=== PATIENT | female | born 1990 | race Caucasian/White ===

== ENCOUNTER 2016-04-19 16:17 | Emergency (ER) | payer SELFPAY ==
--- NOTE | 2016-04-19 16:32 | ER Document Report ---
ED Medical Screen (RME) - General Stated Complaint: FEVER/CHILLS Mode of Arrival: Ambulatory Information source: Patient Notes: Patient complains of flulike symptoms for the past few days. Patient reports fever yesterday. Patient also complains of bilateral flank pain. Patient reports urinary frequency with dark urine. I have greeted and performed a rapid initial assessment of this patient. A comprehensive ED assessment and evaluation of the patient, analysis of test results and completion of the medical decision making process will be conducted by additional ED providers. TRAVEL OUTSIDE OF THE [place] IN LAST 30 DAYS: No - Related Data Allergies/Adverse Reactions: latex [Latex] Allergy (Verified 04/19/16 16:30) amoxicillin [Amoxicillin] Adverse Reaction (Verified 04/19/16 16:30) rash Past Medical History Psychiatric Medical History: Reports: Hx Bipolar Disorder, Hx Depression Past Surgical History: Reports: Hx Adenoidectomy, Hx Section, Hx Oral Surgery, Hx Tonsillectomy - Immunizations Immunizations up to date: Yes Hx Diphtheria, Pertussis, Tetanus Vaccination: No - unknown Physical Exam - Back Back: CVA tenderness - Bilateral
[2016-04-19 17:27] LABS: HEMATOCRIT 45.3 % (36.0-47.0); HEMOGLOBIN 15.5 g/dL (12.0-15.5); HGB HCT DIFFERENCE 1.2; MEAN CORPUSCULAR HEMOGLOBIN 30.7 pg (27.0-33.4); MEAN CORPUSCULAR HGB CONC 34.2 g/dL (32.0-36.0); MEAN CORPUSCULAR VOLUME 90 fl (80-97); RED BLOOD COUNT 5.05 10^6/uL (3.72-5.28); RED CELL DISTRIBUTION WIDTH 13.4 % (11.5-14.0); WHITE BLOOD COUNT 7.5 10^3/uL (4.0-10.5)
[2016-04-19 17:39] LABS: ALANINE AMINOTRANSFERASE 44 U/L (9-52); ALBUMIN 4.4 g/dL (3.5-5.0); ALKALINE PHOSPHATASE 81 U/L (38-126); ANION GAP 12 (5-19); ASPARTATE AMINO TRANSFERASE 32 U/L (14-36); BILIRUBIN,TOTAL 0.4 mg/dL (0.2-1.3); BLOOD UREA NITROGEN 10 mg/dL (7-20); CALCIUM 9.6 mg/dL (8.4-10.2); CARBON DIOXIDE 25 mmol/L (22-30); CHLORIDE 106 mmol/L (98-107); CREATININE RESULT 0.73 mg/dL (0.52-1.25); GLUCOSE 92 mg/dL (75-110); POTASSIUM 4.4 mmol/L (3.6-5.0); SODIUM 142.6 mmol/L (137-145)
[2016-04-19 17:40] LABS: BAND NEUTROPHILS % (MANUAL) 4 % (3-5); BASOPHILS % (MANUAL) 0 % (0-2); EOSINOPHILS % (MANUAL) 2 % (0-6); LYMPHOCYTES % (MANUAL) 21 % (13-45); TOTAL CELLS COUNTED 100
[2016-04-19 17:41] LABS: RBC MORPHOLOGY COMMENT NORMO-CYTIC/CHROMIC
[2016-04-19 18:26] LABS: APPEARANCE,URINE TURBID; BILIRUBIN,URINE NEGATIVE (NEGATIVE); GLUCOSE, URINE NEGATIVE (NEGATIVE); KETONES,URINE NEGATIVE (NEGATIVE); LEUKOCYTE ESTERASE,URINE SMALL (NEGATIVE); NITRITE,URINE POSITIVE (NEGATIVE); PROTEIN,URINE NEGATIVE (NEGATIVE); URINE SPECIFIC GRAVITY 1.025; UROBILINOGEN,URINE NEGATIVE mg/dL (<2.0)
--- NOTE | 2016-04-19 19:21 | ER Document Report ---
ED Flu Like - General Chief Complaint: Flu Symptoms Stated Complaint: FEVER/CHILLS Mode of Arrival: Ambulatory Information source: Patient TRAVEL OUTSIDE OF THE [place] IN LAST 30 DAYS: No - HPI Onset: Other - 3-4 DAYS AGO Timing/Duration: Intermittent. No: Sudden - GRADUAL ONSET Quality of pain: Achy, Dull Severity: Moderate CO exposure: No Tick/Insect bite: No: Confirmed, Suspected, Camping/Hiking Shortness of breath: Mild Associated symptoms: Chills, Nonproductive cough, Fever, Nausea, Other - BACK PAIN (UPPER LUMBAR, R=L), MUCH WORSE THAN ROUTINE CHRONIC BACK PAIN.. denies: Diarrhea Similar symptoms previously: No Recently seen / treated by doctor: No - Related Data Allergies/Adverse Reactions: latex [Latex] Allergy (Verified 04/19/16 16:30) amoxicillin [Amoxicillin] Adverse Reaction (Verified 04/19/16 16:30) rash Past Medical History - General Information source: Patient - Social History Smoking Status: Current Every Day Smoker Chew tobacco use (# tins/day): No Frequency of alcohol use: None Drug Abuse: None Lives with: Spouse/Significant other Family History: None Patient has suicidal ideation: No Patient has homicidal ideation: No - Past Medical History Cardiac Medical History: Reports: None Pulmonary Medical History: Reports: None EENT Medical History: Reports: None Neurological Medical History: Reports: None Endocrine Medical History: Reports: None Renal/ Medical History: Reports: None. Denies: Hx Peritoneal Dialysis Malignancy Medical History: Reports: None GI Medical History: Reports: None Musculoskeltal Medical History: Reports Other - CHRONIC BACK PAIN, ? CAUSE Psychiatric Medical History: Reports: Hx Bipolar Disorder, Hx Depression Past Surgical History: Reports: Hx Adenoidectomy, Hx Section, Hx Oral Surgery, Hx Tonsillectomy - Immunizations Immunizations up to date: Yes Hx Diphtheria, Pertussis, Tetanus Vaccination: No - unknown Review of Systems - Review of Systems Constitutional: See HPI EENT: denies: Eye pain, Ear pain, Throat pain, Mouth pain Cardiovascular: No symptoms reported Respiratory: No symptoms reported Gastrointestinal: See HPI Genitourinary: See HPI, Dysuria, Frequency Female Genitourinary: No symptoms reported. denies: Musculoskeletal: See HPI Skin: No symptoms reported Neurological/Psychological: No symptoms reported Physical Exam - Vital signs Vitals: Temp Pulse Resp BP Pulse Ox 99.6 F 98 20 132/71 H 98 04/19/16 16:31 04/19/16 16:31 04/19/16 16:31 04/19/16 16:31 04/19/16 16:31 Interpretation: Normal - General General appearance: Appears well, Alert In distress: None - HEENT Head: Normocephalic Eyes: Normal Conjunctiva: Normal Ears: Normal Nasal: Normal Mouth/Lips: Normal Mucous membranes: Normal Pharynx: Erythema - SLIGHT. No: Exudate, Post nasal drainage, Tonsillar hypertrophy, Uvular edema Neck: Normal. No: Lymphadenopathy - Respiratory Respiratory status: No respiratory distress Breath sounds: Normal - Cardiovascular Rhythm: Regular - Abdominal Inspection: Normal Distension: No distension Bowel sounds: Normal Tenderness: Nontender - Back Back: Normal, Tender - SUPERFICIAL LUMBAR PARASPINOUS TENDERNESS, BILAT., CVA tenderness - BILATERAL - Extremities General upper extremity: Normal inspection General lower extremity: Normal inspection - Neurological Neuro grossly intact: Yes Cognition: Normal Orientation: AAOx4 - Psychological Associated symptoms: Normal affect, Normal mood - Skin Skin Temperature: Warm Skin Moisture: Dry Skin Color: Normal Skin Turgor: Elastic Course - Vital Signs Vital signs: Temp Pulse Resp BP Pulse Ox 99.6 F 98 16 132/71 H 98 04/19/16 16:31 04/19/16 16:31 04/19/16 18:00 04/19/16 16:31 04/19/16 16:31 - Laboratory Result Diagrams: 04/19/16 16:50 04/19/16 16:50 Laboratory results interpreted by me: 04/19/16 04/19/16 16:50 16:50 Monocytes % (Manual) 15 H Urine Blood MODERATE H Urine Nitrite POSITIVE H Ur Leukocyte Esterase SMALL H Urine Ascorbic Acid 20 H Discharge - Discharge Clinical Impression: Viral illness Urinary tract infection Qualifiers: Urinary tract infection type: site unspecified Hematuria presence: without hematuria Qualified Code(s): N39.0 - Urinary tract infection, site not specified Condition: Stable Disposition: HOME, SELF-CARE Instructions: Nitrofurantoin ([facility]), Oral Narcotic Medication ([facility]), Urinary Tract Infection ([facility]), Viral Syndrome ([facility]), Antinausea Medication ([facility]) Additional Instructions: REST, DRINK PLENTY OF FLUIDS. TYLENOL OR IBUPROFEN FOR FEVER CONTROL IF NEEDED. TAKE MACROBID DIRECTED. YOU MAY TAKE ZOFRAN IF NEEDED FOR NAUSEA CONTROL. YOU MAY TAKE NORCO IF NEEDED FOR PAIN RELIEF. FOLLOW UP IF NOT IMPROVING IN 48 HOURS, OR SOONER IF WORSE ANY TIME. Prescriptions: Hydrocodone/Acetaminophen [[place] 5-325 mg Tablet] 1 tab PO Q4HP PRN #14 tablet PRN Reason: For Pain Nitrofurantoin/Nitrofuran Mac [Macrobid 100 mg Capsule] 100 mg PO BID #20 capsule Ondansetron [Zofran Odt 4 mg Tablet] 1 - 2 tab PO Q4H #10 [email or web address]
[2016-04-19 19:33] VITALS: BP 130/70
== END 2016-04-19 19:33 | disposition home or self-care (01) ==
LOC: ER 16:17
DX: N39.0 Urinary tract infection, site not specified (principal); B34.9 Viral infection, unspecified; R50.9 Fever, unspecified; R05 Cough; M54.89 Other dorsalgia; F17.200 Nicotine dependence, unspecified, uncomplicated; Z91.040 Latex allergy status; Z88.0 Allergy status to penicillin
CPT/HCPCS: 36415; 71020; 80053; 81001; 84703; 85025; 87086; 87088; 87186; 99283

== ENCOUNTER 2017-07-13 21:30 | Emergency (ER) | payer OTHER ==
[2017-07-14] MEDS ORDERED: KETOROLAC TROMETHAMINE INJ/PF 30 MG/1 ML SDV IV ONE (00:29)
[2017-07-14] MEDS ORDERED: MORPHINE SULFATE 10 MG/ML INJ IV ONE (00:29)
[2017-07-14] MEDS ORDERED: ONDANSETRON 4 MG TAB.RAPDIS PO ONE (00:30)
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
[2017-07-14 01:45] LABS: URINE AMPHETAMINES SCREEN NEGATIVE; URINE BARBITURATES SCREEN NEGATIVE; URINE BENZODIAZEPINES SCREEN NEGATIVE; URINE COCAINE SCREEN NEGATIVE; URINE MARIJUANA (THC) SCREEN NEGATIVE; URINE METHADONE SCREEN NEGATIVE; URINE PHENCYCLIDINE SCREEN NEGATIVE
[2017-07-14] MEDS ORDERED: HYDROMORPHONE HCL INJ/PF 2 MG/ML AMPULE IV ONE (03:37)
--- NOTE | 2017-07-14 04:02 | RADIOLOGY REPORT (SQ) ---
EXAM DESCRIPTION: 1. CTA of the head with and without contrast. 2. CTA of the neck with contrast CLINICAL HISTORY: headache, left sided weakness after chiro manip COMPARISON: None available TECHNIQUE: 1. Axial CT images of the head obtained without contrast. 2. Axial CT images of the head and neck obtained following the uncomplicated intravenous administration of 70 mL [id number]. 3-D/MIP reformatted images available. Contrast bolus timing for CT images is suboptimal and predominantly in the venous phase. The arteries are suboptimally evaluated. FINDINGS: CT head without: No acute intracranial hemorrhage identified. No mass, mass effect, shift of the midline, abnormal extra-axial fluid collection or CT evidence of acute ischemic change identified. The ventricular system is unremarkable. No acute abnormalities of the supratentorial white matter, basal ganglia, cerebellum, or brainstem. The visualized paranasal sinuses and the mastoids are clear. No skull fracture identified. Visualized orbits and globes are unremarkable. CTA HEAD: The intracranial carotid arteries have normal course and caliber and bifurcates into patent A1 and M1 segments of the anterior and middle cerebral arteries. No evidence of occlusion. No definite aneurysm identified. Right posterior communicating artery is patent. The posterior circulation is not well evaluated due to contrast bolus timing and artifact from the skull base. The intracranial vertebral arteries appear to be patent and combined to form a patent basilar artery. The basilar artery bifurcates into patent P1 segments of the posterior cerebral arteries. No definite evidence of occlusion or stenosis. CTA NECK: The aortic arch is normal anatomic configuration. The common carotid arteries are patent at their origin. The common carotid arteries are widely patent without evidence of stenosis. The common carotid arteries bifurcate into patent internal and external carotid arteries. 0% stenosis of the carotid arteries by NASCET criteria. No evidence of dissection. The vertebral arteries are patent throughout their visualized course. No definite evidence of dissection, occlusion, or stenosis however, evaluation is suboptimal due to contrast bolus timing. No definite abnormalities in the visualized portions of the lungs or superior mediastinum. No definite abnormality of the visualized neck soft tissues. No lymphadenopathy. Visualized thyroid gland is unremarkable. DLP: 1773.95 mGy-cm IMPRESSION: 1. No acute intracranial abnormality identified. 2. No definite abnormality of the intracranial vasculature identified. 3. No stenosis of the carotid arteries by NASCET criteria. 4. No definite abnormalities of the cervical vertebral arteries. 5. CTA evaluation is suboptimal due to contrast bolus timing. This exam was performed according to our departmental dose-optimization program, which includes automated exposure control, adjustment of the mA and/or kV according to patient size and/or use of iterative reconstruction technique.
[2017-07-14] MEDS ORDERED: HYDROCODONE/ACETAMINOPHEN 5-325 MG (6 TAB/ER DISP) PO PRN (04:07)
[2017-07-14 05:17] VITALS: BP 102/69
== END 2017-07-14 05:17 | disposition home or self-care (01) ==
LOC: ER 21:30
DX: R51 Headache (principal); M54.2 Cervicalgia; R20.0 Anesthesia of skin; R20.2 Paresthesia of skin; R20.8 Other disturbances of skin sensation; Z98.890 Other specified postprocedural states; Z91.040 Latex allergy status; Z88.0 Allergy status to penicillin; F17.210 Nicotine dependence, cigarettes, uncomplicated
CPT/HCPCS: 99284; 96374; 96375; 81025; 80307; 70496; 70498; S0119; J1885; J2270; J1170